=== PATIENT | male | born 2000 | race Caucasian/White ===

== ENCOUNTER 2021-03-11 12:49 | Emergency (ER) | payer BC ==
[~2021-03-11] VITALS: Ht 175.3 cm; Wt 97.5 kg
[2021-03-11 12:51] VITALS: BP 181/101
[2021-03-11 13:03] VITALS: BP 112/50
--- NOTE | 2021-03-11 13:11 | NUR ---
PT AMBULATED TO BED
--- NOTE | 2021-03-11 13:20 | NUR ---
MELANIA PIERRE AT BEDSIDE EXAMINING PT
--- NOTE | 2021-03-11 13:26 | NUR ---
21 y/o male, pt presents to er with c/o nausea, dizzy, fatigue and sob after receiving covid yecenia and yecenia vaccine. pt states post vaccine, pt felt immediately fatigued and dizzy. denies n/v/d, sycope, fall or loc. skin intact warm/pink/dry. denies cp, cough, fever or chills. denies anyone sick in household. hr even and regular. even and symmetrical respirations, lung bases clear. pmh: gastroparesis, anxiety, depression nka med: fluoxetine, buspirone
--- NOTE | 2021-03-11 13:49 | NUR ---
Patient discharged with v/s stable. Written and verbal after care instructions given and explained. Patient verbalized understanding. Ambulatory with steady gait. All questions addressed prior to discharge. Advised to follow up with PMD.
[2021-03-11 13:54] VITALS: BP 112/50
== END 2021-03-11 13:49 | disposition home or self-care (01) ==
LOC: EDSEX 12:49 → MED 12:49
DX: R06.02 Shortness of breath (principal); R42 Dizziness and giddiness; F41.9 Anxiety disorder, unspecified; F32.9 Major depressive disorder, single episode, unspecified
CPT/HCPCS: 99281